=== PATIENT | male | born 1955 | race Caucasian/White ===

== ENCOUNTER 2022-11-15 04:10 | Emergency (ER) | payer BC ==
[~2022-11-15] VITALS: Ht 160 cm; Wt 65.3 kg
[2022-11-15 04:18] VITALS: BP 182/81
--- NOTE | 2022-11-15 05:42 | NUR ---
67YR OLD MALE BIB SELF C/O ABD PAIN X1DAY. PT DENIES CP OR SOB . MIDGASTRIC ABD PAIN 8/10 SHARP. PT STATES FEELING NAUSEA DENIES V/D OR FEVER. PT IS A&OX4 ON BEDSIDE SOLID [employer]. HOB ELEVATED BED AT LOWEST POSITION. NKDA HTN ASTHMA DM 2
[2022-11-15] MEDS ORDERED: MORPHINE SULFATE 4 MG/ML SYR IVP ONE (05:45)
[2022-11-15] MEDS ORDERED: ONDANSETRON 4 MG/2 ML VIAL IVP ONE (05:45)
--- NOTE | 2022-11-15 05:53 | NUR ---
Patient returned back from CT scan.
[2022-11-15 06:04] LABS: BASOPHILS % (AUTO) 0.1 % (0.0-2.0); EOSINOPHILS % (AUTO) 0.6 % (0.0-4.0); HEMATOCRIT 30.6 % (36-52); HEMOGLOBIN 9.8 g/dL (12.0-18.0); LYMPHOCYTES % (AUTO) 13.9 % (20.5-51.1); MEAN CORPUSCULAR HEMOGLOBIN 26 pg (27-31); MEAN CORPUSCULAR HGB CONC 32 g/dL (33-37); MEAN CORPUSCULAR VOLUME 81.6 fL (80-94); MONOCYTES # (AUTO) 0.7 K/uL (0.8-1.0); MONOCYTES % (AUTO) 9.6 % (1.7-9.3); NEUTROPHILS # (AUTO) 5.3 K/uL (1.8-7.7); NEUTROPHILS % (AUTO) 75.8 % (42.2-75.2); PLATELET COUNT (AUTO) 282 K/uL (140-450); RED BLOOD CELL COUNT(AUTO) 3.75 MIL/uL (4.20-6.10); RED CELL DISTRIBUTION WIDTH 16.6 % (11.6-13.7)
[2022-11-15 06:34] LABS: ANION GAP 11.8 (8-16); CARBON DIOXIDE 30.4 mmol/L (21-32); POTASSIUM 4.2 mmol/L (3.5-5.1)
[2022-11-15 06:35] LABS: CREATININE 1.8 mg/dL (0.6-1.3); TOTAL BILIRUBIN 0.7 mg/dL (0.0-1.0)
[2022-11-15 06:41] LABS: APPEARANCE,URINE CLEAR (CLEAR); BILIRUBIN,URINE NEGATIVE (NEGATIVE); BLOOD, URINE NEGATIVE (NEGATIVE); COLOR,URINE YELLOW (YELLOW); LEUKOCYTE ESTERASE ,URINE NEGATIVE (NEGATIVE); NITRITE, URINE NEGATIVE (NEGATIVE); UGLUCOSE NEGATIVE (NEGATIVE)
--- NOTE | 2022-11-15 06:42 | NUR ---
REPORT RECEIVED FROM OG RUIZ, TRANSFER OF CARE AT THIS TIME. PT SITTING UP IN BED, A/O X4, DENIES ANY PAIN. PT CONNECTED TO CARDIAC/O2 MONITOR. VSS. ALL NEEDS MET.
--- NOTE | 2022-11-15 07:20 | NUR ---
REPORT GIVEN TO AMANDA SALAZAR. TRANSFER OF CARE AT THIS TIME
--- NOTE | 2022-11-15 07:23 | NUR ---
Received patient resting in semi-fowlers position with awake overnight monitor in place. US tech at bedside. VSS. Respirations even/unlabored. Bed locked in lowest position, side rails x 1.
[2022-11-15 07:24] LABS: RBC,URINE 0-5 /HPF (0-5); WBC,URINE 0-5 /HPF (0-5)
[2022-11-15 07:46] LABS: ALBUMIN 2.9 g/dL (3.4-5.0)
--- NOTE | 2022-11-15 08:25 | NUR ---
Patient resting in position of comfort; semi-fowlers. cardiac monitor in place. Respirations even/unlabored. Patient denies pain at this time; 0/10. Bed locked in lowest position, side rails x 1. All needs met.
[2022-11-15 08:26] VITALS: BP 182/81
--- NOTE | 2022-11-15 09:25 | NUR ---
Verbal consent received from patient to provide status update to Carmella Webb (daughter). Status update given.
--- NOTE | 2022-11-15 10:10 | NUR ---
Dr. Villegas reevaluating patient at bedside. Pt requesting to leave against medical advice.
[2022-11-15] MEDS ORDERED: IBUP-1842 PO (10:13)
--- NOTE | 2022-11-15 10:15 | NUR ---
Patient does not wish to proceed with medical care recommended by Dr. Villegas. Patient given information related to possible complications, up to and including , which could occur as a result of leaving hospital at this time. Patient verbalizes understanding of risks involved leaving against medical advice. Patient has signed AMA form.
--- NOTE | 2022-11-15 10:15 | NUR ---
Patient signed against medical advice form. Home-care paperwork given to patient. Written and verbal after care instructions given and explained. ID band removed. Patient advised to follow up with PMD. Rx of Ibuprofen given. Patient educated on indication of medication including possible reaction and side effects. Opportunity to ask questions provided and answered.
== END 2022-11-15 10:15 | disposition left against medical advice (07) ==
LOC: MED 04:10
DX: K80.50 Calculus of bile duct without cholangitis or cholecystitis without obstruction (principal); R74.01 Elevation of levels of liver transaminase levels; J44.9 Chronic obstructive pulmonary disease, unspecified; I10 Essential (primary) hypertension; Z79.899 Other long term (current) drug therapy
CPT/HCPCS: 36415; 74176; 76705; 80053; 81001; 83690; 84484; 85025; 93005; 96374; 96375; 99285; J2270; J2405; Q0092

== ENCOUNTER 2022-11-23 07:10 | Emergency (ER) | payer BC ==
[~2022-11-23] VITALS: Ht 160 cm; Wt 63.5 kg
[~2022-11-23 07:10] MED LIST: IBUP-1842 PO
[2022-11-23 07:37] VITALS: BP 178/83
--- NOTE | 2022-11-23 07:40 | NUR ---
67 Y/O MALE BIB SELF PRESENTS TO ED FOR WANTING TO GET GALLBLADDER REMOVED. PER PT KNOWN CONDITION, DENIES ANY NVD AND ACTIVE PAIN. HAS NOT SEEN PCP. LUIS
--- NOTE | 2022-11-23 08:18 | NUR ---
Patient discharged with v/s stable. Written and verbal after care instructions given and explained. Patient verbalized understanding. Ambulatory with steady gait. All questions addressed prior to discharge. Advised to follow up with PMD.
== END 2022-11-23 08:17 | disposition home or self-care (01) ==
LOC: MED 07:10
DX: K80.20 Calculus of gallbladder without cholecystitis without obstruction (principal); E11.9 Type 2 diabetes mellitus without complications; I10 Essential (primary) hypertension; J44.9 Chronic obstructive pulmonary disease, unspecified; Z79.1 Long term (current) use of non-steroidal anti-inflammatories (NSAID)
CPT/HCPCS: 99281